=== PATIENT | male | born 1970 | race Caucasian/White ===

== ENCOUNTER 2021-03-26 13:37 | Observation (INO) ==
[2021-03-26] MEDS ORDERED: Ipratropium/Albuterol Neb 3 ML IH ONE (13:49)
[2021-03-26] MEDS ORDERED: 0.9 % Sodium Chloride 1,000 ML IVC ONE (13:49)
[2021-03-26] MEDS ORDERED: Acetaminophen 325 MG TABLET PO ONE (13:51)
[2021-03-26 14:16] LABS: Basophils % 0.6 %; Eosinophils # 0.1 K/mcL (0.0-0.6); Eosinophils % 1.9 %; Hematocrit 48.4 % (37.5-50.1); Hemoglobin 14.8 g/dL (12.9-16.9); Immature Granulocytes % 0.4 % (0-4); Lymphocytes # 1.1 K/mcL (0.6-4.6); Lymphocytes % 15.2 %; Mean Corpuscular HGB Conc 30.6 g/dL (31.6-35.5); Mean Corpuscular Hemoglobin 28.2 pg (28.0-33.3); Mean Corpuscular Volume 92.2 fL (83.0-100.0); Mean Platelet Volume 9.5 fL (9.4-12.4); Monocytes # 0.8 K/mcL (0.0-1.3); Monocytes % 11.7 %; Neutrophils # 4.9 K/mcL (1.6-8.9); Platelet Count 253 K/mcL (140-400); Red Blood Count 5.25 M/mcL (4.19-5.50); Red Cell Distribution Width 12.9 % (11.5-14.5); Segmented Neutrophils % 70.2 %
[2021-03-26 14:32] LABS: Alanine Aminotransferase 31 Units/L (7-52); Albumin 3.9 g/dL (3.5-5.7); Albumin/Globulin Ratio 1.7 (1.1-2.2); Alkaline Phosphatase 131 Units/L (34-104); Aspartate Amino Transferase 32 Units/L (13-39); BUN/Creatinine Ratio 16 (6-26); Bilirubin,Indirect 0.4 mg/dL (0.0-1.0); Bilirubin,Total 0.4 mg/dL (0.3-1.0); Blood Urea Nitrogen 19 mg/dL (6-20); Carbon Dioxide 32 mEq/L (23-29); Chloride 101 mEq/L (98-107); Globulin 2.3 g/dL (2.4-3.5); Glucose 198 mg/dL (70-105); Osmolality,Calculated 294 (280-300); Potassium 4.8 mEq/L (3.5-5.1); Sodium 138 mEq/L (136-145); Total Protein 6.2 g/dL (6.4-8.9); Troponin I 0.06 ng/mL (< 0.04); eGFR For African Americans > 60 (> 60); eGFR For Non-African Americans > 60 (> 60)
[2021-03-26 14:43] LABS: Bilirubin,Urine Negative (Negative); Blood,Urine Negative (Negative); Clarity,Urine Clear (Clear); Color,Urine Yellow (Yellow); Glucose,Urine (UA) Normal (Normal); Granular Casts,Urine Few per lpf (None Seen); Hyaline Casts,Urine Many per lpf (None Seen); Ketones,Urine Negative (Negative); Leukocyte Esterase,Urine Negative (Negative); Mucus,Urine Few per lpf (None-Few); Nitrite,Urine Negative (Negative); Protein,Urine >=600 mg/dL (Neg-Trace); Specific Gravity,Urine > 1.030 (1.010-1.025); Squamous Epithelial Cell,Urine Few per hpf (None-Few); Transitional Epi Cells,Urine Few per hpf (None-Few)
[2021-03-26] MEDS ORDERED: Azithromycin 250 MG TABLET PO ONE (14:51)
[2021-03-26] MEDS ORDERED: cefTRIAXone 1,000 MG in Water for inj. (sterile) 10 ML IVP ONE (14:51)
[2021-03-26] MEDS ORDERED: Furosemide 40 MG/4 ML VIAL IVP ONE (15:06)
[2021-03-26] MEDS ORDERED: Isovue-370 500 ML BOTTLE IVP ONE (15:18)
[2021-03-26] MEDS ORDERED: Ondansetron 4 MG/2 ML VIAL IVP PRN (15:27)
[2021-03-26] MEDS ORDERED: Naloxone 0.4 MG/ML INJ IVP PRN (15:27)
[2021-03-26] MEDS ORDERED: Acetaminophen 325 MG TABLET PO PRN (15:27)
[2021-03-26] MEDS ORDERED: *HR* Labetalol 20 MG/4 ML SYRINGE IVP PRN (15:32)
[2021-03-26] MEDS ORDERED: Perflutren Lipid Microsphere 1.3 ML in 0.9 % Sodium Chloride 8.7 ML IVP PRN (15:33)
[2021-03-26] MEDS ORDERED: captopriL 25 MG TABLET PO ONE (15:40)
[2021-03-26 15:50] LABS: Influenza A PCR Negative (Negative); Influenza B PCR Negative (Negative); Resp. Syncytial Virus PCR Negative (Negative)
[2021-03-26 15:53] LABS: SARS-CoV-2 by PCR (In House) Negative (Negative)
[2021-03-26] MEDS: *HR* Heparin 5,000 UNIT/ML VIAL SQ SCH (17:58)
[2021-03-26] MEDS ORDERED: *HR* Metoprolol 5 MG/5 ML VIAL IVP ONE (22:44)
[2021-03-26] MEDS: Levalbuterol Neb 0.63 MG/3 ML IH SCH (23:30)
[2021-03-27 04:52] LABS: Basophils % 0.2 %; Hematocrit 45.8 % (37.5-50.1); Hemoglobin 14.6 g/dL (12.9-16.9); Immature Granulocytes % 0.4 % (0-4); Lymphocytes # 0.4 K/mcL (0.6-4.6); Lymphocytes % 6.9 %; Mean Corpuscular HGB Conc 31.9 g/dL (31.6-35.5); Mean Corpuscular Hemoglobin 28.7 pg (28.0-33.3); Mean Platelet Volume 9.7 fL (9.4-12.4); Monocytes # 0.2 K/mcL (0.0-1.3); Monocytes % 3.6 %; Neutrophils # 4.5 K/mcL (1.6-8.9); Platelet Count 287 K/mcL (140-400); Red Blood Count 5.09 M/mcL (4.19-5.50); Red Cell Distribution Width 12.6 % (11.5-14.5); Segmented Neutrophils % 88.9 %
[2021-03-27 05:30] LABS: BUN/Creatinine Ratio 18 (6-26); Blood Urea Nitrogen 19 mg/dL (6-20); Calcium 8.8 mg/dL (8.6-10.3); Carbon Dioxide 33 mEq/L (23-29); Chloride 100 mEq/L (98-107); Chol/HDL Ratio 3.3 (0-4.9); Cholesterol 162 mg/dL (< 200); Glucose 167 mg/dL (70-105); HDL Cholesterol 49 mg/dL (40-59); LDL Cholesterol,Calculated 102 mg/dL (< 100); Osmolality,Calculated 292 (280-300); Potassium 4.9 mEq/L (3.5-5.1); Sodium 138 mEq/L (136-145); Triglycerides 55 mg/dL (< 150); Troponin I 0.04 ng/mL (< 0.04); eGFR For African Americans > 60 (> 60); eGFR For Non-African Americans > 60 (> 60)
[2021-03-27] MEDS: *HR* Heparin 5,000 UNIT/ML VIAL SQ SCH (06:06)
[2021-03-27] MEDS ORDERED: *HR* Metoprolol 5 MG/5 ML VIAL IVP ONE (06:35)
[2021-03-27] MEDS ORDERED: *HR* LORazepam 2 MG/ML VIAL IVP ONE (06:50)
[2021-03-27 07:21] VITALS: O2SAT 96
[2021-03-27] MEDS: Levalbuterol Neb 0.63 MG/3 ML IH SCH (07:36)
[2021-03-27] MEDS ORDERED: lisinopriL 10 MG TABLET PO SCH (09:00)
[2021-03-27] MEDS ORDERED: Furosemide 40 MG/4 ML VIAL IVP SCH (09:00)
[2021-03-27 10:09] LABS: Estimated Average Glucose 140 mg/dl; Hemoglobin A1C 6.5 %
[2021-03-27 10:56] VITALS: BP 150/99; PULSE 94; TEMP 98.5
[2021-03-27] MEDS ORDERED: carvediloL 6.25 MG TABLET PO SCH (17:00)
== END 2021-03-27 14:56 | disposition left against medical advice (07) ==
LOC: 2ANU 13:37 → EMEROOARM 13:37 → 2ANU 17:48
PROVIDERS: ADMIT General Practice; ATTEND General Practice

== ENCOUNTER 2021-05-24 12:54 | Inpatient (IN) ==
[2021-05-24] MEDS ORDERED: Ipratropium/Albuterol Neb 3 ML IH ONE (13:25)
[2021-05-24] MEDS ORDERED: *HR* LORazepam 2 MG/ML VIAL IVP ONE ×2 (13:30→18:08)
[2021-05-24 13:38] LABS: Basophils % 0.3 %; Eosinophils % 0.3 %; Hematocrit 49.5 % (37.5-50.1); Hemoglobin 15.9 g/dL (12.9-16.9); Immature Granulocytes % 0.6 % (0-4); Lymphocytes # 0.9 K/mcL (0.6-4.6); Mean Corpuscular HGB Conc 32.1 g/dL (31.6-35.5); Mean Corpuscular Hemoglobin 27.6 pg (28.0-33.3); Mean Corpuscular Volume 85.8 fL (83.0-100.0); Mean Platelet Volume 8.6 fL (9.4-12.4); Monocytes # 1.7 K/mcL (0.0-1.3); Monocytes % 11.5 %; Neutrophils # 12.2 K/mcL (1.6-8.9); Platelet Count 358 K/mcL (140-400); Red Blood Count 5.77 M/mcL (4.19-5.50); Red Cell Distribution Width 14.7 % (11.5-14.5); Segmented Neutrophils % 81.3 %
[2021-05-24 13:40] LABS: VBG HCO3 34 mEq/L (21-27); VBG PCO2 60 mmHg (41-51); VBG PH 7.37 pH Units (7.32-7.42); VBG PO2 115 mmHg (25-50)
[2021-05-24 13:55] LABS: INR 1.4; Prothrombin Time 15.7 Seconds (9.4-12.1)
[2021-05-24 13:57] LABS: Activated Partial Thrombo Time 28.9 Seconds (26.0-36.0)
[2021-05-24 14:22] LABS: BUN/Creatinine Ratio 21 (6-26); Blood Urea Nitrogen 24 mg/dL (6-20); Calcium 9.2 mg/dL (8.6-10.3); Carbon Dioxide 34 mEq/L (23-29); Chloride 95 mEq/L (98-107); Glucose 115 mg/dL (70-105); Osmolality,Calculated 291 (280-300); Sodium 138 mEq/L (136-145); Troponin I 0.09 ng/mL (< 0.04); eGFR For African Americans > 60 (> 60); eGFR For Non-African Americans > 60 (> 60)
[2021-05-24] MEDS ORDERED: Isovue-370 500 ML BOTTLE IVP ONE (14:45)
[2021-05-24] MEDS ORDERED: Furosemide 40 MG/4 ML VIAL IVP ONE (14:50)
[2021-05-24 14:52] LABS: Influenza A PCR Negative (Negative); Influenza B PCR Negative (Negative); Resp. Syncytial Virus PCR Negative (Negative)
[2021-05-24 15:15] LABS: SARS-CoV-2 by PCR (In House) Negative (Negative)
[2021-05-24] MEDS ORDERED: cefTRIAXone 1,000 MG in 0.9 % Sodium Chloride Mini Bag 100 ML IVPB ONE (15:59)
[2021-05-24] MEDS ORDERED: *HR* Heparin 5,000 UNIT/ML VIAL IVP ONE (16:00)
[2021-05-24] MEDS ORDERED: *HR* Heparin 5,000 UNIT/ML VIAL IVP PRN ×2 (16:00)
[2021-05-24] MEDS ORDERED: Azithromycin 500 MG in 0.9 % Sodium Chloride 250 ML IVPB ONE (16:02)
[2021-05-24 16:46] LABS: Alanine Aminotransferase 37 Units/L (7-52); Albumin/Globulin Ratio 1.8 (1.1-2.2); Alkaline Phosphatase 93 Units/L (34-104); Aspartate Amino Transferase 36 Units/L (13-39); Bilirubin,Direct 0.1 mg/dL (0.0-0.2); Bilirubin,Indirect 0.4 mg/dL (0.0-1.0); Bilirubin,Total 0.5 mg/dL (0.3-1.0); Globulin 2.2 g/dL (2.4-3.5); Total Protein 6.2 g/dL (6.4-8.9)
[2021-05-24] MEDS ORDERED: Ondansetron 4 MG/2 ML VIAL IVP PRN (17:48)
[2021-05-24] MEDS ORDERED: *HR* Labetalol 20 MG/4 ML SYRINGE IVP ONE (17:48)
[2021-05-24] MEDS ORDERED: Naloxone 0.4 MG/ML INJ IVP PRN (17:48)
[2021-05-24] MEDS ORDERED: Ipratropium/Albuterol Neb 3 ML IH PRN (17:52)
[2021-05-24] MEDS ORDERED: Perflutren Lipid Microsphere 1.3 ML in 0.9 % Sodium Chloride 8.7 ML IVP PRN (17:52)
[2021-05-24] MEDS ORDERED: *HR* LORazepam 2 MG/ML VIAL IVP PRN (18:08)
[2021-05-24] MEDS ORDERED: Nitroglycerin 0.4 MG TAB.SUBL SL PRN (18:13)
[2021-05-24] MEDS: Heparin 25,000UNIT/250ML 1/2NS 25,000 UNIT/250 ML IV.SOLN IVC SCH (18:22)
[2021-05-24] MEDS: MethylPREDNISolone 40 MG/ML VIAL IVP SCH (19:18)
[2021-05-24] MEDS: Nicotine 21 MG PATCH.TD24 TD SCH (19:19)
[2021-05-24] MEDS: Ipratropium/Albuterol Neb 3 ML IH SCH ×3 (19:37→23:21)
[2021-05-24] MEDS: Budesonide/Formoterol 160/4.5 1 PUFF INH IH SCH (20:01)
[2021-05-24] MEDS: Furosemide 40 MG/4 ML VIAL IVP SCH (20:07)
[2021-05-24] MEDS: Aspirin 81 MG TAB.CHEW PO SCH ×2 (20:16→21:13)
[2021-05-24] MEDS: lisinopriL 20 MG TABLET PO SCH ×2 (20:16→21:14)
[2021-05-24 21:05] LABS: Bilirubin,Urine Negative (Negative); Blood,Urine Negative (Negative); Clarity,Urine Clear (Clear); Color,Urine Colorless (Yellow); Glucose,Urine (UA) Normal (Normal); Ketones,Urine Negative (Negative); Leukocyte Esterase,Urine Negative (Negative); Mucus,Urine Few per lpf (None-Few); Nitrite,Urine Negative (Negative); PH,Urine 6.5 pH Units (5.0-8.0); Protein,Urine 30 mg/dL (Neg-Trace); RBC,Urine 0-3 per hpf (0-3); Specific Gravity,Urine 1.014 (1.010-1.025); Urobilinogen,Urine Normal (Normal); WBC,Urine 0-3 per hpf (0-3)
[2021-05-24 21:09] LABS: Amphetamine Screen,Urine Positive ng/mL (Cutoff=1000); Barbiturate Screen,Urine Negative ng/mL (Cutoff=200); Benzodiazepines Screen,Urine Negative ng/mL (Cutoff=200); Cannabinoid Screen,Urine Negative ng/mL (Cutoff = 50); Cocaine Screen,Urine Negative ng/mL (Cutoff= 300); Opiate Screen,Urine Negative ng/mL (Cutoff=300); Phencyclidine Screen,Urine Negative ng/mL (Cutoff=25)
[2021-05-25] MEDS ORDERED: Acetaminophen IV 500 MG/50 ML BAG IVPB ONE (00:14)
[2021-05-25] MEDS: MethylPREDNISolone 40 MG/ML VIAL IVP SCH ×3 (00:32→16:06)
[2021-05-25] MEDS: *HR* LORazepam 2 MG/ML VIAL IVP PRN ×6 (00:53→17:03)
[2021-05-25 01:02] LABS: Basophils % 0.2 %; Eosinophils % 0.1 %; Hematocrit 50.3 % (37.5-50.1); Hemoglobin 16.2 g/dL (12.9-16.9); Immature Granulocytes % 0.9 % (0-4); Lymphocytes # 0.3 K/mcL (0.6-4.6); Mean Corpuscular HGB Conc 32.2 g/dL (31.6-35.5); Mean Corpuscular Hemoglobin 27.6 pg (28.0-33.3); Mean Corpuscular Volume 85.8 fL (83.0-100.0); Mean Platelet Volume 8.7 fL (9.4-12.4); Monocytes # 0.4 K/mcL (0.0-1.3); Monocytes % 2.7 %; Neutrophils # 12.4 K/mcL (1.6-8.9); Platelet Count 291 K/mcL (140-400); Red Blood Count 5.86 M/mcL (4.19-5.50); Red Cell Distribution Width 14.6 % (11.5-14.5); Segmented Neutrophils % 94.1 %; White Blood Count 13.2 K/mcL (4.3-11.1)
[2021-05-25 01:20] LABS: BUN/Creatinine Ratio 20 (6-26); Blood Urea Nitrogen 24 mg/dL (6-20); Calcium 8.8 mg/dL (8.6-10.3); Carbon Dioxide 38 mEq/L (23-29); Chloride 91 mEq/L (98-107); Glucose 119 mg/dL (70-105); Magnesium 1.9 mg/dL (1.6-2.6); Osmolality,Calculated 285 (280-300); Phosphorous 4.1 mg/dL (2.7-4.5); Potassium 4.8 mEq/L (3.5-5.1); Sodium 135 mEq/L (136-145); eGFR For African Americans > 60 (> 60); eGFR For Non-African Americans > 60 (> 60)
[2021-05-25] MEDS: Ipratropium/Albuterol Neb 3 ML IH SCH ×6 (03:57→23:48)
[2021-05-25] MEDS: cefTRIAXone 1,000 MG in 0.9 % Sodium Chloride 10 ML IVP SCH (08:07)
[2021-05-25] MEDS: Nicotine 21 MG PATCH.TD24 TD SCH (08:10)
[2021-05-25] MEDS: Furosemide 40 MG/4 ML VIAL IVP SCH ×2 (08:10→19:50)
[2021-05-25] MEDS: carvediloL 6.25 MG TABLET PO SCH ×3 (08:12→18:09)
[2021-05-25] MEDS: lisinopriL 20 MG TABLET PO SCH (08:12)
[2021-05-25] MEDS: Aspirin 81 MG TAB.CHEW PO SCH (08:14)
[2021-05-25] MEDS: Budesonide/Formoterol 160/4.5 1 PUFF INH IH SCH ×2 (11:18→19:59)
[2021-05-25] MEDS: Heparin 25,000UNIT/250ML 1/2NS 25,000 UNIT/250 ML IV.SOLN IVC SCH (12:32)
[2021-05-25] MEDS: Azithromycin 500 MG in 0.9 % Sodium Chloride 250 ML IVPB SCH (16:06)
[2021-05-25] MEDS: Dexmedetomidine HCl 400 MCG/100 ML MLS IVC SCH (17:54)
[2021-05-26] MEDS: MethylPREDNISolone 40 MG/ML VIAL IVP SCH ×4 (00:21→23:46)
[2021-05-26] MEDS: Ipratropium/Albuterol Neb 3 ML IH SCH ×4 (04:07→15:28)
[2021-05-26] MEDS: *HR* LORazepam 2 MG/ML VIAL IVP PRN ×2 (05:59→12:36)
[2021-05-26] MEDS: Dexmedetomidine HCl 400 MCG/100 ML MLS IVC SCH ×5 (07:14→23:45)
[2021-05-26] MEDS: Budesonide/Formoterol 160/4.5 1 PUFF INH IH SCH ×2 (07:57→20:05)
[2021-05-26 09:07] LABS: Basophils % 0.1 %; Hematocrit 53.5 % (37.5-50.1); Hemoglobin 16.6 g/dL (12.9-16.9); Immature Granulocytes % 0.5 % (0-4); Lymphocytes # 0.4 K/mcL (0.6-4.6); Lymphocytes % 2.7 %; Mean Corpuscular Hemoglobin 27.7 pg (28.0-33.3); Mean Corpuscular Volume 89.2 fL (83.0-100.0); Mean Platelet Volume 9.2 fL (9.4-12.4); Monocytes # 0.9 K/mcL (0.0-1.3); Neutrophils # 12.1 K/mcL (1.6-8.9); Platelet Count 293 K/mcL (140-400); Red Cell Distribution Width 14.3 % (11.5-14.5); Segmented Neutrophils % 89.7 %; White Blood Count 13.5 K/mcL (4.3-11.1)
[2021-05-26] MEDS: Nicotine 21 MG PATCH.TD24 TD SCH (09:23)
[2021-05-26] MEDS: Heparin 25,000UNIT/250ML 1/2NS 25,000 UNIT/250 ML IV.SOLN IVC SCH ×2 (09:28→22:53)
[2021-05-26] MEDS: Furosemide 40 MG/4 ML VIAL IVP SCH ×2 (09:29→22:15)
[2021-05-26] MEDS: cefTRIAXone 1,000 MG in 0.9 % Sodium Chloride 10 ML IVP SCH (09:30)
[2021-05-26 10:27] LABS: BUN/Creatinine Ratio 34 (6-26); Blood Urea Nitrogen 40 mg/dL (6-20); Calcium 9.3 mg/dL (8.6-10.3); Carbon Dioxide 45 mEq/L (23-29); Chloride 91 mEq/L (98-107); Glucose 132 mg/dL (70-105); Osmolality,Calculated 298 (280-300); Potassium 4.9 mEq/L (3.5-5.1); Sodium 138 mEq/L (136-145); eGFR For African Americans > 60 (> 60); eGFR For Non-African Americans > 60 (> 60)
[2021-05-26] MEDS: Aspirin 81 MG TAB.CHEW PO SCH (11:34)
[2021-05-26] MEDS: carvediloL 6.25 MG TABLET PO SCH ×2 (11:34→17:47)
[2021-05-26] MEDS: lisinopriL 20 MG TABLET PO SCH (11:34)
[2021-05-26] MEDS: Azithromycin 500 MG in 0.9 % Sodium Chloride 250 ML IVPB SCH (17:36)
[2021-05-27 02:26] LABS: Basophils % 0.2 %; Hematocrit 50.2 % (37.5-50.1); Hemoglobin 15.7 g/dL (12.9-16.9); Immature Granulocytes % 0.5 % (0-4); Lymphocytes # 0.5 K/mcL (0.6-4.6); Lymphocytes % 4.4 %; Mean Corpuscular HGB Conc 31.3 g/dL (31.6-35.5); Mean Corpuscular Hemoglobin 27.3 pg (28.0-33.3); Mean Corpuscular Volume 87.3 fL (83.0-100.0); Mean Platelet Volume 9.3 fL (9.4-12.4); Monocytes # 1.3 K/mcL (0.0-1.3); Monocytes % 10.8 %; Neutrophils # 9.8 K/mcL (1.6-8.9); Platelet Count 259 K/mcL (140-400); Red Blood Count 5.75 M/mcL (4.19-5.50); Red Cell Distribution Width 14.3 % (11.5-14.5); Segmented Neutrophils % 84.1 %; White Blood Count 11.7 K/mcL (4.3-11.1)
[2021-05-27 03:00] LABS: Calcium 9.4 mg/dL (8.6-10.3); Potassium 5.2 mEq/L (3.5-5.1)
[2021-05-27] MEDS: Dexmedetomidine HCl 400 MCG/100 ML MLS IVC SCH ×4 (03:40→16:51)
[2021-05-27] MEDS: *HR* LORazepam 2 MG/ML VIAL IVP PRN ×4 (05:58→21:04)
[2021-05-27] MEDS: Heparin 25,000UNIT/250ML 1/2NS 25,000 UNIT/250 ML IV.SOLN IVC SCH (06:00)
[2021-05-27] MEDS: Budesonide/Formoterol 160/4.5 1 PUFF INH IH SCH ×2 (07:42→21:12)
[2021-05-27] MEDS: cefTRIAXone 1,000 MG in 0.9 % Sodium Chloride 10 ML IVP SCH (07:54)
[2021-05-27] MEDS: MethylPREDNISolone 40 MG/ML VIAL IVP SCH ×2 (07:54→16:52)
[2021-05-27] MEDS: Nicotine 21 MG PATCH.TD24 TD SCH (07:55)
[2021-05-27] MEDS: carvediloL 6.25 MG TABLET PO SCH ×2 (07:58→16:53)
[2021-05-27] MEDS: Furosemide 40 MG/4 ML VIAL IVP SCH ×2 (07:58→21:03)
[2021-05-27] MEDS: lisinopriL 20 MG TABLET PO SCH (07:58)
[2021-05-27] MEDS: Aspirin 81 MG TAB.CHEW PO SCH (08:40)
[2021-05-27] MEDS: Azithromycin 500 MG in 0.9 % Sodium Chloride 250 ML IVPB SCH (16:52)
[2021-05-28] MEDS: *HR* LORazepam 2 MG/ML VIAL IVP PRN (03:19)
[2021-05-28 03:20] LABS: Basophils % 0.3 %; Hematocrit 51.6 % (37.5-50.1); Hemoglobin 16.5 g/dL (12.9-16.9); Immature Granulocytes % 0.5 % (0-4); Lymphocytes # 0.6 K/mcL (0.6-4.6); Lymphocytes % 7.9 %; Mean Corpuscular Hemoglobin 28.1 pg (28.0-33.3); Mean Corpuscular Volume 87.9 fL (83.0-100.0); Mean Platelet Volume 9.5 fL (9.4-12.4); Monocytes # 0.2 K/mcL (0.0-1.3); Monocytes % 2.9 %; Neutrophils # 7.1 K/mcL (1.6-8.9); Platelet Count 229 K/mcL (140-400); Red Blood Count 5.87 M/mcL (4.19-5.50); Red Cell Distribution Width 14.6 % (11.5-14.5); Segmented Neutrophils % 88.4 %
[2021-05-28 03:38] LABS: BUN/Creatinine Ratio 44 (6-26); Blood Urea Nitrogen 59 mg/dL (6-20); Calcium 9.4 mg/dL (8.6-10.3); Carbon Dioxide 42 mEq/L (23-29); Chloride 92 mEq/L (98-107); Glucose 107 mg/dL (70-105); Osmolality,Calculated 305 (280-300); Potassium 5.2 mEq/L (3.5-5.1); Sodium 139 mEq/L (136-145); eGFR For African Americans > 60 (> 60); eGFR For Non-African Americans 56 (> 60)
[2021-05-28] MEDS: Budesonide/Formoterol 160/4.5 1 PUFF INH IH SCH ×2 (07:56→19:41)
[2021-05-28] MEDS: carvediloL 6.25 MG TABLET PO SCH ×2 (09:29→16:48)
[2021-05-28] MEDS: lisinopriL 20 MG TABLET PO SCH (09:29)
[2021-05-28] MEDS: MethylPREDNISolone 40 MG/ML VIAL IVP SCH ×3 (09:29→15:34)
[2021-05-28] MEDS: Aspirin 81 MG TAB.CHEW PO SCH (09:29)
[2021-05-28] MEDS: cefTRIAXone 1,000 MG in 0.9 % Sodium Chloride 10 ML IVP SCH (09:30)
[2021-05-28] MEDS: Furosemide 40 MG/4 ML VIAL IVP SCH ×2 (09:30→22:26)
[2021-05-28] MEDS: Nicotine 21 MG PATCH.TD24 TD SCH (09:30)
[2021-05-28] MEDS: Dexmedetomidine HCl 400 MCG/100 ML MLS IVC SCH ×2 (10:36→17:36)
[2021-05-28] MEDS: Heparin 25,000UNIT/250ML 1/2NS 25,000 UNIT/250 ML IV.SOLN IVC SCH (15:49)
[2021-05-28] MEDS: Azithromycin 500 MG in 0.9 % Sodium Chloride 250 ML IVPB SCH (16:49)
[2021-05-29] MEDS: MethylPREDNISolone 40 MG/ML VIAL IVP SCH ×4 (00:37→23:07)
[2021-05-29] MEDS: Dexmedetomidine HCl 400 MCG/100 ML MLS IVC SCH ×3 (02:42→23:13)
[2021-05-29 04:54] LABS: Basophils % 0.2 %; Hematocrit 51.4 % (37.5-50.1); Hemoglobin 16.3 g/dL (12.9-16.9); Immature Granulocytes % 0.5 % (0-4); Lymphocytes # 0.7 K/mcL (0.6-4.6); Lymphocytes % 8.7 %; Mean Corpuscular HGB Conc 31.7 g/dL (31.6-35.5); Mean Corpuscular Volume 85.2 fL (83.0-100.0); Mean Platelet Volume 9.4 fL (9.4-12.4); Monocytes # 0.4 K/mcL (0.0-1.3); Monocytes % 5.2 %; Neutrophils # 6.9 K/mcL (1.6-8.9); Platelet Count 239 K/mcL (140-400); Red Blood Count 6.03 M/mcL (4.19-5.50); Red Cell Distribution Width 14.4 % (11.5-14.5); Segmented Neutrophils % 85.4 %; White Blood Count 8.1 K/mcL (4.3-11.1)
[2021-05-29 05:16] LABS: BUN/Creatinine Ratio 49 (6-26); Blood Urea Nitrogen 69 mg/dL (6-20); Calcium 9.8 mg/dL (8.6-10.3); Carbon Dioxide 45 mEq/L (23-29); Chloride 88 mEq/L (98-107); Glucose 134 mg/dL (70-105); Osmolality,Calculated 304 (280-300); Potassium 4.7 mEq/L (3.5-5.1); Sodium 136 mEq/L (136-145); eGFR For African Americans > 60 (> 60); eGFR For Non-African Americans 53 (> 60)
[2021-05-29] MEDS: Budesonide/Formoterol 160/4.5 1 PUFF INH IH SCH ×2 (08:12→20:25)
[2021-05-29] MEDS: cefTRIAXone 1,000 MG in 0.9 % Sodium Chloride 10 ML IVP SCH (08:15)
[2021-05-29] MEDS: carvediloL 6.25 MG TABLET PO SCH ×2 (08:16→15:29)
[2021-05-29] MEDS: lisinopriL 20 MG TABLET PO SCH (08:17)
[2021-05-29] MEDS: Nicotine 21 MG PATCH.TD24 TD SCH (08:17)
[2021-05-29] MEDS: Aspirin 81 MG TAB.CHEW PO SCH (08:17)
[2021-05-29] MEDS: Heparin 25,000UNIT/250ML 1/2NS 25,000 UNIT/250 ML IV.SOLN IVC SCH (09:50)
[2021-05-29] MEDS: *HR* LORazepam 2 MG/ML VIAL IVP PRN (11:21)
[2021-05-29] MEDS: Azithromycin 500 MG in 0.9 % Sodium Chloride 250 ML IVPB SCH (15:29)
[2021-05-29] MEDS ORDERED: *HR* OxyCODONE Immed Rel 5 MG TABLET PO ONE (19:35)
[2021-05-29] MEDS ORDERED: *HR* OxyCODONE/APAP 10/325 TABLET PO PRN (21:26)
[2021-05-30] MEDS: *HR* LORazepam 2 MG/ML VIAL IVP PRN ×3 (00:59→22:26)
[2021-05-30] MEDS: Dexmedetomidine HCl 400 MCG/100 ML MLS IVC SCH ×2 (07:55→16:07)
[2021-05-30] MEDS: Heparin 25,000UNIT/250ML 1/2NS 25,000 UNIT/250 ML IV.SOLN IVC SCH (07:57)
[2021-05-30] MEDS: Budesonide/Formoterol 160/4.5 1 PUFF INH IH SCH ×2 (09:00→20:40)
[2021-05-30] MEDS: MethylPREDNISolone 40 MG/ML VIAL IVP SCH ×3 (09:28→22:27)
[2021-05-30] MEDS: cefTRIAXone 1,000 MG in 0.9 % Sodium Chloride 10 ML IVP SCH (09:29)
[2021-05-30] MEDS: Nicotine 21 MG PATCH.TD24 TD SCH (09:30)
[2021-05-30] MEDS: lisinopriL 20 MG TABLET PO SCH (09:30)
[2021-05-30] MEDS: carvediloL 6.25 MG TABLET PO SCH ×2 (09:30→16:03)
[2021-05-30] MEDS: Aspirin 81 MG TAB.CHEW PO SCH (09:30)
[2021-05-30] MEDS: *HR* OxyCODONE/APAP 5/325 TABLET PO PRN ×2 (09:40→16:03)
[2021-05-30] MEDS: Azithromycin 500 MG in 0.9 % Sodium Chloride 250 ML IVPB SCH (16:06)
[2021-05-31] MEDS: Dexmedetomidine HCl 400 MCG/100 ML MLS IVC SCH ×3 (00:31→20:47)
[2021-05-31] MEDS: Heparin 25,000UNIT/250ML 1/2NS 25,000 UNIT/250 ML IV.SOLN IVC SCH (04:47)
[2021-05-31 05:37] LABS: Basophils % 0.1 %; Hematocrit 46.7 % (37.5-50.1); Immature Granulocytes % 0.7 % (0-4); Lymphocytes # 0.5 K/mcL (0.6-4.6); Lymphocytes % 3.8 %; Mean Corpuscular HGB Conc 32.1 g/dL (31.6-35.5); Mean Corpuscular Hemoglobin 27.6 pg (28.0-33.3); Mean Platelet Volume 9.8 fL (9.4-12.4); Monocytes # 0.5 K/mcL (0.0-1.3); Monocytes % 3.6 %; Neutrophils # 12.9 K/mcL (1.6-8.9); Platelet Count 181 K/mcL (140-400); Red Blood Count 5.43 M/mcL (4.19-5.50); Red Cell Distribution Width 13.3 % (11.5-14.5); Segmented Neutrophils % 91.8 %
[2021-05-31 06:04] LABS: BUN/Creatinine Ratio 39 (6-26); Blood Urea Nitrogen 45 mg/dL (6-20); Calcium 9.2 mg/dL (8.6-10.3); Carbon Dioxide 40 mEq/L (23-29); Chloride 94 mEq/L (98-107); Glucose 158 mg/dL (70-105); Osmolality,Calculated 297 (280-300); Potassium 4.9 mEq/L (3.5-5.1); Sodium 136 mEq/L (136-145); eGFR For African Americans > 60 (> 60); eGFR For Non-African Americans > 60 (> 60)
[2021-05-31] MEDS: Aspirin 81 MG TAB.CHEW PO SCH (10:03)
[2021-05-31] MEDS: carvediloL 6.25 MG TABLET PO SCH ×2 (10:03→15:50)
[2021-05-31] MEDS: cefTRIAXone 1,000 MG in 0.9 % Sodium Chloride 10 ML IVP SCH (10:03)
[2021-05-31] MEDS: MethylPREDNISolone 40 MG/ML VIAL IVP SCH (10:03)
[2021-05-31] MEDS: Furosemide 40 MG/4 ML VIAL IVP SCH ×2 (10:04→19:20)
[2021-05-31] MEDS: Nicotine 21 MG PATCH.TD24 TD SCH (10:04)
[2021-05-31] MEDS: *HR* OxyCODONE/APAP 5/325 TABLET PO PRN (10:06)
[2021-05-31] MEDS: Budesonide/Formoterol 160/4.5 1 PUFF INH IH SCH ×2 (10:50→20:07)
[2021-05-31] MEDS: *HR* LORazepam 2 MG/ML VIAL IVP PRN ×3 (12:34→23:17)
[2021-05-31] MEDS: *HR* OxyCODONE/APAP 10/325 TABLET PO PRN ×2 (15:50→22:10)
[2021-05-31] MEDS ORDERED: Haloperidol Lactate 5 MG/ML VIAL IVP ONE (23:04)
[2021-06-01] MEDS: Dexmedetomidine HCl 400 MCG/100 ML MLS IVC SCH ×2 (02:01→07:01)
[2021-06-01] MEDS: Heparin 25,000UNIT/250ML 1/2NS 25,000 UNIT/250 ML IV.SOLN IVC SCH ×2 (03:01→14:08)
[2021-06-01] MEDS: Budesonide/Formoterol 160/4.5 1 PUFF INH IH SCH (07:19)
[2021-06-01 07:40] LABS: Basophils % 0.1 %; Eosinophils % 0.1 %; Hematocrit 46.7 % (37.5-50.1); Lymphocytes # 1.1 K/mcL (0.6-4.6); Lymphocytes % 7.3 %; Mean Corpuscular HGB Conc 32.1 g/dL (31.6-35.5); Mean Corpuscular Hemoglobin 27.5 pg (28.0-33.3); Mean Corpuscular Volume 85.5 fL (83.0-100.0); Mean Platelet Volume 9.7 fL (9.4-12.4); Monocytes # 1.2 K/mcL (0.0-1.3); Monocytes % 7.7 %; Platelet Count 178 K/mcL (140-400); Red Blood Count 5.46 M/mcL (4.19-5.50); Red Cell Distribution Width 13.5 % (11.5-14.5); Segmented Neutrophils % 83.8 %; White Blood Count 15.5 K/mcL (4.3-11.1)
[2021-06-01 07:58] LABS: BUN/Creatinine Ratio 33 (6-26); Blood Urea Nitrogen 34 mg/dL (6-20); Calcium 9.1 mg/dL (8.6-10.3); Carbon Dioxide 44 mEq/L (23-29); Chloride 92 mEq/L (98-107); Glucose 106 mg/dL (70-105); Osmolality,Calculated 294 (280-300); Potassium 4.7 mEq/L (3.5-5.1); Sodium 138 mEq/L (136-145); eGFR For African Americans > 60 (> 60); eGFR For Non-African Americans > 60 (> 60)
[2021-06-01] MEDS: carvediloL 6.25 MG TABLET PO SCH (08:45)
[2021-06-01] MEDS: Aspirin 81 MG TAB.CHEW PO SCH (08:46)
[2021-06-01] MEDS: *HR* OxyCODONE/APAP 10/325 TABLET PO PRN ×2 (08:46→14:44)
[2021-06-01] MEDS: *HR* LORazepam 2 MG/ML VIAL IVP PRN ×3 (08:46→14:57)
[2021-06-01] MEDS: Furosemide 40 MG/4 ML VIAL IVP SCH (08:47)
[2021-06-01] MEDS: Nicotine 21 MG PATCH.TD24 TD SCH (08:47)
[2021-06-01] MEDS ORDERED: *HR* LORazepam 0.5 MG TABLET PO PRN (10:39)
[2021-06-01] MEDS ORDERED: Fluticasone Propionate Nasal 50 MCG/SPRAY BOTTLE NS SCH (10:45)
[2021-06-01 12:17] VITALS: BP 103/45; PULSE 76; TEMP 98.2; O2SAT 91
== END 2021-06-01 15:57 | disposition left against medical advice (07) | DRG 134 ==
LOC: 3NENU 12:54 → EMEROOARM 12:54 → 3NENU 19:35 → SUATTDRO 20:20 → 2NENU 05-28 11:53
PROVIDERS: ADMIT Internal Medicine; ATTEND Student in an Organized Health Care Education/Training Program

== ENCOUNTER 2021-06-01 16:31 | Inpatient (IN) ==
[2021-06-01 17:02] LABS: VBG HCO3 42 mEq/L (21-27); VBG PCO2 83 mmHg (41-51); VBG PH 7.31 pH Units (7.32-7.42); VBG PO2 64 mmHg (25-50)
[2021-06-01 17:03] LABS: Basophils # 0.1 K/mcL (0.0-0.2); Basophils % 0.5 %; Eosinophils # 0.1 K/mcL (0.0-0.6); Eosinophils % 0.6 %; Immature Granulocytes % 1.9 % (0-4); Lymphocytes % 10.7 %; Mean Corpuscular HGB Conc 30.8 g/dL (31.6-35.5); Mean Corpuscular Hemoglobin 27.2 pg (28.0-33.3); Mean Corpuscular Volume 88.3 fL (83.0-100.0); Mean Platelet Volume 9.8 fL (9.4-12.4); Monocytes # 2.1 K/mcL (0.0-1.3); Monocytes % 11.7 %; Neutrophils # 13.6 K/mcL (1.6-8.9); Platelet Count 253 K/mcL (140-400); Red Blood Count 6.35 M/mcL (4.19-5.50); Red Cell Distribution Width 13.9 % (11.5-14.5); Segmented Neutrophils % 74.6 %; White Blood Count 18.3 K/mcL (4.3-11.1)
[2021-06-01 17:06] LABS: Hematocrit 56.1 % (37.5-50.1); Hemoglobin 17.3 g/dL (12.9-16.9)
[2021-06-01] MEDS ORDERED: Naloxone 0.4 MG/ML INJ IVP PRN (17:28)
[2021-06-01] MEDS ORDERED: Ondansetron 4 MG/2 ML VIAL IVP PRN (17:28)
[2021-06-01 17:29] LABS: BUN/Creatinine Ratio 28 (6-26); Blood Urea Nitrogen 37 mg/dL (6-20); Calcium 9.6 mg/dL (8.6-10.3); Carbon Dioxide 45 mEq/L (23-29); Chloride 89 mEq/L (98-107); Glucose 84 mg/dL (70-105); Osmolality,Calculated 290 (280-300); Potassium 4.4 mEq/L (3.5-5.1); Sodium 136 mEq/L (136-145); Troponin I 0.05 ng/mL (< 0.04); eGFR For African Americans > 60 (> 60); eGFR For Non-African Americans 57 (> 60)
[2021-06-01] MEDS: Dexmedetomidine HCl 400 MCG/100 ML MLS IVC SCH ×2 (17:51→22:07)
[2021-06-01] MEDS: *HR* Enoxaparin 100 MG/ML SYRINGE SQ SCH (17:59)
[2021-06-01] MEDS: Haloperidol Lactate 5 MG/ML VIAL IVP PRN (18:03)
[2021-06-01 18:54] LABS: Amphetamine Screen,Urine Negative ng/mL (Cutoff=1000); Barbiturate Screen,Urine Negative ng/mL (Cutoff=200); Benzodiazepines Screen,Urine Negative ng/mL (Cutoff=200); Cannabinoid Screen,Urine Negative ng/mL (Cutoff = 50); Cocaine Screen,Urine Negative ng/mL (Cutoff= 300); Opiate Screen,Urine Positive ng/mL (Cutoff=300); Phencyclidine Screen,Urine Negative ng/mL (Cutoff=25)
[2021-06-01 19:12] LABS: Bilirubin,Urine Negative (Negative); Blood,Urine Large (Negative); Clarity,Urine Clear (Clear); Color,Urine Light-Yellow (Yellow); Glucose,Urine (UA) Normal (Normal); Ketones,Urine Negative (Negative); Leukocyte Esterase,Urine Negative (Negative); Mucus,Urine Few per lpf (None-Few); Nitrite,Urine Negative (Negative); Protein,Urine 30 mg/dL (Neg-Trace); RBC,Urine TNTC per hpf (0-3); Specific Gravity,Urine 1.024 (1.010-1.025); Uric Acid Crystals,Urine Present per hpf; Urobilinogen,Urine Normal (Normal); WBC,Urine 0-3 per hpf (0-3)
[2021-06-01 19:51] LABS: INR 1.1; Prothrombin Time 11.7 Seconds (9.4-12.1)
[2021-06-01 19:53] LABS: Activated Partial Thrombo Time 25.8 Seconds (26.0-36.0)
[2021-06-01] MEDS: Furosemide 40 MG/4 ML VIAL IVP SCH (19:53)
[2021-06-01] MEDS: Budesonide/Formoterol 160/4.5 1 PUFF INH IH SCH (20:35)
[2021-06-01] MEDS: Ipratropium/Albuterol Neb 3 ML IH SCH (20:35)
[2021-06-01] MEDS ORDERED: *HR* Labetalol 20 MG/4 ML SYRINGE IVP PRN (21:40)
[2021-06-02] MEDS: Ipratropium/Albuterol Neb 3 ML IH SCH ×6 (00:02→20:38)
[2021-06-02] MEDS ORDERED: 0.9 % Sodium Chloride 500 ML ONE (01:19)
[2021-06-02] MEDS ORDERED: 0.9 % Sodium Chloride 500 ML IVC ONE (01:22)
[2021-06-02 03:57] LABS: Basophils # 0.1 K/mcL (0.0-0.2); Basophils % 0.6 %; Eosinophils # 0.1 K/mcL (0.0-0.6); Hematocrit 47.4 % (37.5-50.1); Lymphocytes # 1.9 K/mcL (0.6-4.6); Lymphocytes % 18.3 %; Mean Corpuscular Hemoglobin 27.3 pg (28.0-33.3); Mean Corpuscular Volume 87.9 fL (83.0-100.0); Mean Platelet Volume 9.9 fL (9.4-12.4); Monocytes # 1.1 K/mcL (0.0-1.3); Monocytes % 10.4 %; Neutrophils # 6.9 K/mcL (1.6-8.9); Platelet Count 187 K/mcL (140-400); Red Blood Count 5.39 M/mcL (4.19-5.50); Segmented Neutrophils % 67.7 %; White Blood Count 10.2 K/mcL (4.3-11.1)
[2021-06-02 03:59] LABS: Hemoglobin 14.7 g/dL (12.9-16.9)
[2021-06-02 04:13] LABS: BUN/Creatinine Ratio 27 (6-26); Blood Urea Nitrogen 36 mg/dL (6-20); Calcium 8.8 mg/dL (8.6-10.3); Carbon Dioxide 45 mEq/L (23-29); Chloride 91 mEq/L (98-107); Glucose 91 mg/dL (70-105); Osmolality,Calculated 292 (280-300); Potassium 4.6 mEq/L (3.5-5.1); Sodium 137 mEq/L (136-145); eGFR For African Americans > 60 (> 60); eGFR For Non-African Americans 57 (> 60)
[2021-06-02] MEDS: *HR* Enoxaparin 100 MG/ML SYRINGE SQ SCH ×2 (05:36→17:14)
[2021-06-02] MEDS: Budesonide/Formoterol 160/4.5 1 PUFF INH IH SCH ×2 (07:55→20:38)
[2021-06-02] MEDS ORDERED: lisinopriL 5 MG TABLET PO SCH (09:00)
[2021-06-02] MEDS: Aspirin 81 MG TAB.CHEW PO SCH (09:23)
[2021-06-02] MEDS: carvediloL 6.25 MG TABLET PO SCH ×2 (09:23→17:14)
[2021-06-02] MEDS: Fluticasone Propionate Nasal 50 MCG/SPRAY BOTTLE NS SCH (09:23)
[2021-06-02] MEDS: Furosemide 40 MG/4 ML VIAL IVP SCH ×2 (09:23→20:46)
[2021-06-02 09:29] LABS: Magnesium 1.8 mg/dL (1.6-2.6); Phosphorous 3.5 mg/dL (2.7-4.5)
[2021-06-02] MEDS: Dexmedetomidine HCl 400 MCG/100 ML MLS IVC SCH ×2 (12:55→23:37)
[2021-06-02] MEDS: Haloperidol Lactate 5 MG/ML VIAL IVP PRN ×2 (14:15→20:46)
[2021-06-02] MEDS: MethylPREDNISolone 40 MG/ML VIAL IVP SCH (17:14)
[2021-06-03] MEDS: Ipratropium/Albuterol Neb 3 ML IH SCH ×7 (00:11→23:41)
[2021-06-03] MEDS: *HR* Enoxaparin 100 MG/ML SYRINGE SQ SCH ×2 (05:12→16:13)
[2021-06-03] MEDS: MethylPREDNISolone 40 MG/ML VIAL IVP SCH ×2 (05:12→16:13)
[2021-06-03 06:01] LABS: Basophils % 0.2 %; Hematocrit 49.3 % (37.5-50.1); Immature Granulocytes % 1.6 % (0-4); Lymphocytes # 0.6 K/mcL (0.6-4.6); Lymphocytes % 5.1 %; Mean Corpuscular HGB Conc 32.5 g/dL (31.6-35.5); Mean Corpuscular Hemoglobin 27.5 pg (28.0-33.3); Mean Corpuscular Volume 84.9 fL (83.0-100.0); Mean Platelet Volume 10.1 fL (9.4-12.4); Monocytes # 0.2 K/mcL (0.0-1.3); Monocytes % 1.8 %; Neutrophils # 10.5 K/mcL (1.6-8.9); Platelet Count 166 K/mcL (140-400); Red Blood Count 5.81 M/mcL (4.19-5.50); Red Cell Distribution Width 13.9 % (11.5-14.5); Segmented Neutrophils % 91.3 %; White Blood Count 11.5 K/mcL (4.3-11.1)
[2021-06-03 07:02] LABS: BUN/Creatinine Ratio 33 (6-26); Blood Urea Nitrogen 34 mg/dL (6-20); Calcium 9.5 mg/dL (8.6-10.3); Carbon Dioxide 41 mEq/L (23-29); Chloride 88 mEq/L (98-107); Glucose 180 mg/dL (70-105); Osmolality,Calculated 292 (280-300); Potassium 4.7 mEq/L (3.5-5.1); Sodium 135 mEq/L (136-145); eGFR For African Americans > 60 (> 60); eGFR For Non-African Americans > 60 (> 60)
[2021-06-03] MEDS: Budesonide/Formoterol 160/4.5 1 PUFF INH IH SCH ×2 (07:53→19:54)
[2021-06-03] MEDS: Haloperidol Lactate 5 MG/ML VIAL IVP PRN (09:42)
[2021-06-03] MEDS: Fluticasone Propionate Nasal 50 MCG/SPRAY BOTTLE NS SCH (09:43)
[2021-06-03] MEDS: Furosemide 40 MG/4 ML VIAL IVP SCH (09:43)
[2021-06-03] MEDS: carvediloL 6.25 MG TABLET PO SCH ×2 (09:43→16:12)
[2021-06-03] MEDS: Aspirin 81 MG TAB.CHEW PO SCH (09:43)
[2021-06-03] MEDS: Nicotine 21 MG PATCH.TD24 TD SCH (10:10)
[2021-06-03] MEDS: Dexmedetomidine HCl 400 MCG/100 ML MLS IVC SCH (15:13)
[2021-06-03] MEDS ORDERED: QUEtiapine Fumarate 25 MG TABLET PO SCH (21:00)
[2021-06-04 03:57] VITALS: TEMP 97.8
[2021-06-04] MEDS: Ipratropium/Albuterol Neb 3 ML IH SCH ×2 (04:09→07:48)
[2021-06-04 05:04] LABS: Basophils % 0.2 %; Hematocrit 50.4 % (37.5-50.1); Hemoglobin 16.4 g/dL (12.9-16.9); Lymphocytes # 0.8 K/mcL (0.6-4.6); Lymphocytes % 3.7 %; Mean Corpuscular HGB Conc 32.5 g/dL (31.6-35.5); Mean Corpuscular Hemoglobin 27.3 pg (28.0-33.3); Mean Platelet Volume 10.2 fL (9.4-12.4); Monocytes # 1.1 K/mcL (0.0-1.3); Monocytes % 5.3 %; Platelet Count 216 K/mcL (140-400); Red Cell Distribution Width 13.9 % (11.5-14.5); Segmented Neutrophils % 89.8 %
[2021-06-04 05:06] LABS: White Blood Count 21.2 K/mcL (4.3-11.1)
[2021-06-04 05:26] LABS: BUN/Creatinine Ratio 28 (6-26); Blood Urea Nitrogen 33 mg/dL (6-20); Calcium 9.9 mg/dL (8.6-10.3); Carbon Dioxide 43 mEq/L (23-29); Chloride 88 mEq/L (98-107); Glucose 160 mg/dL (70-105); Osmolality,Calculated 293 (280-300); Sodium 136 mEq/L (136-145); eGFR For African Americans > 60 (> 60); eGFR For Non-African Americans > 60 (> 60)
[2021-06-04] MEDS: MethylPREDNISolone 40 MG/ML VIAL IVP SCH (06:10)
[2021-06-04] MEDS: *HR* Enoxaparin 100 MG/ML SYRINGE SQ SCH (06:10)
[2021-06-04 07:16] VITALS: BP 152/124; PULSE 88; O2SAT 97
[2021-06-04] MEDS: Budesonide/Formoterol 160/4.5 1 PUFF INH IH SCH (07:48)
[2021-06-04] MEDS ORDERED: Nicotine 21 MG PATCH.TD24 TD SCH (09:00)
[2021-06-04] MEDS ORDERED: Morphine Sulfate 2 MG/ML SYRINGE IVP ONE (09:02)
[2021-06-04] MEDS ORDERED: Morphine Sulfate 2 MG/ML SYRINGE IVP STA (09:03)
[2021-06-04] MEDS ORDERED: *HR* HYDROmorphone (PF) 1 MG/ML SYRINGE IM ONE (09:13)
[2021-06-04] MEDS: Nicotine 21 MG PATCH.TD24 TD SCH (09:26)
[2021-06-04] MEDS: carvediloL 6.25 MG TABLET PO SCH (09:26)
[2021-06-04] MEDS: Aspirin 81 MG TAB.CHEW PO SCH (09:26)
[2021-06-04] MEDS: Furosemide 40 MG/4 ML VIAL IVP SCH (09:32)
== END 2021-06-04 09:50 | disposition left against medical advice (07) | DRG 134 ==
LOC: 2NENU 16:31 → EMEROOARM 16:31 → SUATTDRO 17:09 → 2NENU 17:40
PROVIDERS: ADMIT Internal Medicine; ATTEND Student in an Organized Health Care Education/Training Program